=== PATIENT | female | born 1980 | race Caucasian/White ===

== ENCOUNTER 2016-07-19 08:11 | Emergency (ER) | payer BC, OTHER ==
[~2016-07-19] VITALS: Ht 165.1 cm; Wt 52.0 kg
[~2016-07-19 08:11] MED LIST: AUGM875T PO; CLAR10TA13 PO
[2016-07-19 08:12] VITALS: BP 114/68; PULSE 104; RESP 16; TEMP 98; O2SAT 98
[2016-07-19 08:55] LABS: AUTOMATED NEUTROPHIL # 3.2 TH/MM3 (1.8-7.7); BASOPHIL % 0.6 % (0.0-2.0); EOSINOPHIL # 0.1 TH/MM3 (0-0.4); EOSINOPHIL % 1.8 % (0.0-4.0); HEMATOCRIT 41.1 % (35.0-46.0); HEMO FLAGS DIFF FINAL; LYMPHOCYTE # 2.1 TH/MM3 (1.0-4.8); MEAN CELL VOLUME 91.9 FL (80.0-100.0); MEAN CORPUSCULAR HGB CONC 32.7 % (32.0-36.0); MONO % 7.4 % (0.0-8.0); NEUT % 54.2 % (16.0-70.0); PLATELET COUNT 247 TH/MM3 (150-450); RED BLOOD COUNT 4.47 MIL/MM3 (4.00-5.30); RED CELL DISTRIBUTION WIDTH 13.2 % (11.6-17.2); WHITE BLOOD COUNT 5.9 TH/MM3 (4.0-11.0)
[2016-07-19] MEDS ORDERED: SODIUM CHLOR 0.9% 1000 ML INJ 1,000 ML IV ONE (09:00)
[2016-07-19] MEDS ORDERED: PANTOPRAZOLE SODIUM 40 MG VIAL IV PUSH ONE (09:00)
[2016-07-19 09:12] LABS: ANION GAP 8 MEQ/L (5-15); AST (GOT) 17 U/L (15-37); BICARBONATE 28.5 MEQ/L (21.0-32.0); BLOOD UREA NITROGEN 12 MG/DL (7-18); CHLORIDE 105 MEQ/L (98-107); GLOMERULAR FILTRATION RATE 98 ML/MIN (>89); POTASSIUM 3.9 MEQ/L (3.5-5.1); SODIUM (NA) 141 MEQ/L (136-145)
[2016-07-19 09:15] LABS: BACTERIA, URINE RARE /hpf; BLOOD, URINE NEG (NEG); COMMENT (UR) CULT NOT INDICATED; CULTURE IF INDICATED CULT NOT INDICATED; GLUCOSE,URINE NEG (NEG); HYALINE CAST, URINE 3 /lpf (RARE); KETONE, URINE NEG (NEG); NITRITE,URINE NEG (NEG); PH, URINE 8.5 (5.0-8.5); SQUAMOUS EPITHELIAL CELL URINE <1 /hpf (0-5); URINE COLOR YELLOW (YELLW/STRAW)
[2016-07-19 09:16] LABS: ALKALINE PHOSPHATASE 52 U/L (45-117); ALT (GPT) 23 U/L (10-53); TOTAL BILIRUBIN ADULT 0.4 MG/DL (0.2-1.0)
--- NOTE | 2016-07-19 09:21 | PD ---
HPI Chief Complaint: Abdominal Pain Time Seen by Provider: 08:29 Travel History International Travel<30 days: No Contact w/Intl Traveler<30days: No Traveled to known affect area: No History of Present Illness HPI 35-year-old female presents with epigastric abdominal pain that is been present over the past couple of days. She states that she started her menstrual cycle on Monday and it is starting to let up and that this pain is different. She states she had this once before when she was on vacation in [place] and so she took Zantac and a green bottle medication but did not see a physician for it as it got better. She states that she currently doesn't have a primary care physician. Besides being on her menstrual cycle currently she denies any other concurrent complaints. She states that she's had 1 miscarriage before. She states that she otherwise has never been besides that. She states the miscarriage was at 8 weeks. She states that her last menstrual cycle before this one was on June 18. She states they are pretty regular. [facility] Past Medical History Medical History: Denies Significant Hx ?: Not LMP: 07/16/2016 Past Surgical History Surgical History: No Previous Surgery Social History Alcohol Use: Yes Tobacco Use: No Substance Use: No Allergies-Medications (Allergen,Severity, Reaction): Coded Allergies: No Known Allergies (Unverified , 07/19/16) Reported Meds & Prescriptions Reported Meds & Active Scripts Active Protonix (Pantoprazole Sodium) 40 Mg Tab 40 Mg PO DAILY 14 Days Reported Claritin-D 24 Hour (Loratadine & Pseudoephedrine) 1 Tab [place] 1 Tab PO DAILY Augmentin 875 mg Tab (Amoxicillin & Pot Clavulanate 875 mg Tab) 875 Mg Tab 875 Mg PO BID Review of Systems Except as stated in HPI: all other systems reviewed are Neg Physical Exam Narrative GENERAL: Well-nourished, well-developed patient. SKIN: Warm and dry. HEAD: Normocephalic and atraumatic. EYES: No injection or drainage. ENT: No nasal drainage noted. NECK: Supple, trachea midline. CARDIOVASCULAR: Regular rate and rhythm RESPIRATORY: Breath sounds equal bilaterally. No accessory muscle use. GASTROINTESTINAL: Abdomen soft, mild tenderness with deep palpation in epigastric area, nondistended. EXTREMITIES: No edema. BACK: Nontender without obvious deformity. NEUROLOGICAL: Awake and alert. Motor and sensory grossly within normal limits. Normal speech. Data Data Last Documented VS Vital Signs Date Time Temp Pulse Resp B/P Pulse Ox O2 Delivery O2 Flow Rate FiO2 07/19/16 08:12 98.0 104 16 114/68 98 Orders Urinalysis - C+S If Indicated (07/19/16 08:29) Ed Urine Pregnancytest Poc (07/19/16 08:29) Complete Blood Count With Diff (07/19/16 08:29) Comprehensive Metabolic Panel (07/19/16 08:29) Lipase (07/19/16 08:29) Iv Access Insert/Monitor (07/19/16 08:29) Pantoprazole Inj (Protonix Inj) (07/19/16 09:00) Sodium Chlor 0.9% 1000 Ml Inj (Ns 1000 M (07/19/16 09:00) Ct Abd/Pel W Iv Contrast(Rout) (07/19/16 ) Iohexol 350 Inj (Omnipaque 350 Inj) (07/19/16 10:04) Labs Laboratory Tests Test 07/19/16 08:30 White Blood Count 5.9 TH/MM3 Red Blood Count 4.47 MIL/MM3 Hemoglobin 13.4 GM/DL Hematocrit 41.1 % Mean Corpuscular Volume 91.9 FL Mean Corpuscular Hemoglobin 30.0 PG Mean Corpuscular Hemoglobin 32.7 % Concent Red Cell Distribution Width 13.2 % Platelet Count 247 TH/MM3 Mean Platelet Volume 7.7 FL Neutrophils (%) (Auto) 54.2 % Lymphocytes (%) (Auto) 36.0 % Monocytes (%) (Auto) 7.4 % Eosinophils (%) (Auto) 1.8 % Basophils (%) (Auto) 0.6 % Neutrophils # (Auto) 3.2 TH/MM3 Lymphocytes # (Auto) 2.1 TH/MM3 Monocytes # (Auto) 0.4 TH/MM3 Eosinophils # (Auto) 0.1 TH/MM3 Basophils # (Auto) 0.0 TH/MM3 CBC Comment DIFF FINAL Differential Comment Urine Color YELLOW Urine Turbidity CLOUDY Urine pH 8.5 Urine Specific [place] 1.018 Urine Protein TRACE mg/dL Urine Glucose (UA) NEG mg/dL Urine Ketones NEG mg/dL Urine Occult Blood NEG Urine Nitrite NEG Urine Bilirubin NEG Urine Urobilinogen LESS THAN 2.0 MG/DL Urine Leukocyte Esterase NEG Urine WBC LESS THAN 1 /hpf Urine Squamous Epithelial <1 /hpf Cells Urine Amorphous Sediment OCC Urine Bacteria RARE /hpf Urine Hyaline Casts 3 /lpf Microscopic Urinalysis Comment CULT NOT INDICATED Sodium Level 141 MEQ/L Potassium Level 3.9 MEQ/L Chloride Level 105 MEQ/L Carbon Dioxide Level 28.5 MEQ/L Anion Gap 8 MEQ/L Blood Urea Nitrogen 12 MG/DL Creatinine 0.68 MG/DL Estimat Glomerular Filtration 98 ML/MIN Rate Random Glucose 89 MG/DL Calcium Level 8.5 MG/DL Total Bilirubin 0.4 MG/DL Aspartate Amino Transf 17 U/L (AST/SGOT) Alanine Aminotransferase 23 U/L (ALT/SGPT) Alkaline Phosphatase 52 U/L Total Protein 6.6 GM/DL Albumin 3.5 GM/DL Lipase 123 U/L [facility] Medical Decision Making Medical Screen Exam Complete: Yes Emergency Medical Condition: Yes Medical Record Reviewed: Yes (past history confirmed) Interpretation(s) CBC & BMP Diagram 07/19/16 08:30 Last 24 hours Impressions Abdomen/Pelvis CT 07/19/16 0000 Signed Impressions: Service Date/Time: Tuesday, July 19, 2016 09:47 - CONCLUSION: 1. Unremarkable bowel gas pattern. The study was performed without oral contrast limiting the sensitivity. 2. Contracted gallbladder which is otherwise unremarkable. Ibrahima Godinez MD Differential Diagnosis Gastritis, ulcer, pancreatitis, cholelithiasis, stone Narrative Course Will check blood work, urinalysis, test Given negative beta will proceed with CT imaging and Protonix and reevaluate on recheck Patient denies any new complaints and states that they are feeling better. Patient happy with care, all questions answered. Patient knows that follow up is incumbent on them and to return to the emergency room immediately if new or worsening symptoms develop. Patient given strict return precautions- worsening pain, fever, vomiting, dark stools or rectal bleeding, vitals reviewed and are normal, agrees to further workup as an outpatient by setting up a primary care physician and possible GI referral. Diagnosis Primary Impression: Abdominal pain Qualified Code: R10.13 - Epigastric pain Patient Instructions: General Instructions Additional Instructions: return as needed, set up a primary and gastrointestinal specialist, avoid anti- inflammatory medications [id number] and use Tylenol as needed for pain Med/Other Pt SpecificInfo: Prescription(s) given Scripts Pantoprazole (Protonix)40 Mg Tab40 Mg PO DAILY 14 Days Ref 0 Prov:Diann Darnell MD 07/19/16 Disposition: 01 DISCHARGE HOME Condition: Stable Diann Darnell MD Jul 19, 2016 09:21
[2016-07-19] MEDS ORDERED: IOHEXOL 350 MG/ML 10 ML VIAL (for RAD DIAG) IV ONE (10:04)
--- NOTE | 2016-07-19 10:22 | RADRPT ---
EXAM DATE/TIME: 07/19/2016 09:47 [facility] COMPARISON: No previous studies available for comparison. INDICATIONS : Epigastric pain. IV CONTRAST: 90 cc Omnipaque 350 (iohexol) IV ORAL CONTRAST: No oral contrast ingested. RADIATION DOSE: 9.96 CTDIvol (mGy) MEDICAL HISTORY : None SURGICAL HISTORY : Appendectomy. ENCOUNTER: Initial ACUITY: 3 days PAIN SCALE: 7/10 LOCATION: Epigastric. TECHNIQUE: Volumetric scanning of the abdomen and pelvis was performed. Using automated exposure control and ad justment of the mA and/or kV according to patient size, radiation dose was kept as low as reasonably achievable to obtain optimal diagnostic quality images. FINDINGS: LOWER LUNGS: The visualized lower lungs are clear. LIVER: Homogeneous density without lesion. There is no dilation of the biliary tree. The gallbladder is dec ompressed but otherwise unremarkable with no calcified gallstones. SPLEEN: Normal size without lesion. PANCREAS: Within normal limits. KIDNEYS: Normal in size and shape. There is no mass, stone or hydronephrosis. ADRENAL GLANDS: Within normal limits. VASCULAR: There is no aortic aneurysm. BOWEL/MESENTERY: No oral contrast was given limiting the sensitivity. The stomach, small bowel, and colon demonstrate no acute abnormality. There is no free intraperitoneal air or fluid. ABDOMINAL WALL: Within normal limits. RETROPERITONEUM: There is no lymphadenopathy. BLADDER: No wall thickening or mass. REPRODUCTIVE: Within normal limits. INGUINAL: There is no lymphadenopathy or hernia. MUSCULOSKELETAL: Within normal limits for patient age. CONCLUSION: 1. Unremarkable bowel gas pattern. The study was performed without oral contrast limiting the sensiti vity. 2. Contracted gallbladder which is otherwise unremarkable. Ibrahima Godinez MD on July 19, 2016 at 10:12 Board Certified Radiologist. This report was verified electronically.
[2016-07-19] MEDS ORDERED: PROT40TA PO (10:53)
[2016-07-19 11:00] VITALS: BP 131/77
[2016-07-26] MEDS ORDERED: PROT40TA PO (14:20)
== END 2016-07-19 11:08 | disposition home or self-care (01) ==
LOC: NEPC 08:11
DX: R10.13 Epigastric pain (principal)
CPT/HCPCS: 74177; 80053; 81001; 83690; 84703; 85025; 96361; 96374; 99284; C9113; J7030; Q9967